=== PATIENT | female | born 1975 | race Two or more races ===

== ENCOUNTER 2016-09-05 21:01 | Emergency (ER) | payer MEDICAID ==
[~2016-09-05] VITALS: Ht 162.6 cm; Wt 90.7 kg
[2016-09-05 21:23] VITALS: BP 156/91
[2016-09-06] MEDS ORDERED: CYCLOBENZAPRINE HCL 10 MG TAB PO ONE
== END 2016-09-06 00:21 | disposition home or self-care (01) ==
LOC: ER 21:14
DX: S86.911A Strain of unspecified muscle(s) and tendon(s) at lower leg level, right leg, initial encounter (principal); M54.16 Radiculopathy, lumbar region; F17.210 Nicotine dependence, cigarettes, uncomplicated; F41.9 Anxiety disorder, unspecified; F32.9 Major depressive disorder, single episode, unspecified; E11.9 Type 2 diabetes mellitus without complications; Z86.73 Personal history of transient ischemic attack (TIA), and cerebral infarction without residual deficits; Z88.8 Allergy status to other drugs, medicaments and biological substances; X58.XXXA Exposure to other specified factors, initial encounter; Y93.89 Activity, other specified; Y92.89 Other specified places as the place of occurrence of the external cause; Y99.8 Other external cause status
CPT/HCPCS: 73560

== ENCOUNTER 2017-02-06 14:57 | Emergency (ER) | payer MEDICAID ==
[~2017-02-06] VITALS: Ht 157.5 cm; Wt 90.7 kg
[2017-02-06 15:57] VITALS: BP 144/87
[2017-02-06] MEDS ORDERED: KETOROLAC TROMETH 60MG/2ML VIAL IM ONE (17:00)
== END 2017-02-06 17:44 | disposition home or self-care (01) ==
LOC: ER 15:21
DX: M54.41 Lumbago with sciatica, right side (principal); E11.9 Type 2 diabetes mellitus without complications; F17.210 Nicotine dependence, cigarettes, uncomplicated; Z88.1 Allergy status to other antibiotic agents; Z90.49 Acquired absence of other specified parts of digestive tract
CPT/HCPCS: 96372; 99283; J1885

== ENCOUNTER 2017-05-20 23:18 | Observation (INO) | payer MEDICAID ==
[~2017-05-20] VITALS: Ht 157.5 cm; Wt 90.7 kg
[2017-05-21 00:20] LABS: Basophils # (auto) 0 uL; Basophils % (auto) 0.8 % (0.0-2.0); Eosinophils # (auto) 0.2 uL; Eosinophils % (auto) 3.4 % (0.0-7.0); Hematocrit 38.9 % (36.0-46.0); Hemoglobin 13.2 g/dL (12.2-16.2); Lymphocytes # (auto) 1.9 uL; Lymphocytes % (auto) 33.2 % (10.0-50.0); Mean Corpuscular Hemoglobin 31.6 pg (28.0-32.0); Mean Corpuscular Volume 92.8 fL (80.0-100.0); Monocytes # (auto) 0.6 uL; Monocytes % (auto) 11.4 % (0.0-12.0); Neutrophils # (auto) 2.9 uL; Neutrophils % (auto) 51.2 % (37.0-80.0); Nucleated Red Blood Cells % 0.1 %; Platelet Count (auto) 214 10^3/uL (140-450); Red Blood Cells 4.19 10^6/uL (4.0-5.20); Red Cell Distribution Width 13.8 % (11.8-14.3); White Blood Cell 5.6 10^3/uL (4.4-10.8)
[2017-05-21 00:32] LABS: Acetaminophen < 2.0 ug/mL (10-30); Salicylate 2.2 mg/dL (2.8-20.0)
[2017-05-21 00:36] LABS: Alanine Aminotransferase 117 U/L (13-56); Albumin 3.6 g/dL (3.4-5.0); Alkaline Phosphatase 177 U/L (45-117); Anion Gap 7 (5-15); Aspartate Aminotransferase 118 U/L (15-37); Bilirubin, Total 0.7 mg/dL (0.2-1.0); Blood Alcohol < 3.0 mg/dL (0-5); Blood Urea Nitrogen 7 mg/dL (7-18); Carbon Dioxide 28 mmol/L (21-32); Chloride 101 mmol/L (98-107); GFR African American 104 mL/min; GFR Non-African American 86 mL/min; Glucose 96 mg/dL (74-106); Potassium 4.1 mmol/L (3.5-5.1); Sodium 136 mmol/L (136-145); Total Protein 8.2 g/dL (6.4-8.2)
[2017-05-21 02:16] LABS: Urine WBC None Seen /hpf (0 - 5)
[2017-05-21 02:32] LABS: Urine Pregnacy Test Negative (Negative)
[2017-05-21 02:33] LABS: Urine Bacteria NONE SEEN /hpf (None Seen); Urine Blood 2+ /uL (Negative); Urine Specific Gravity 1.002 (1.001-1.035)
[2017-05-21 02:48] LABS: Alcohol, Urine < 3.0 mg/dL (0-5); Amphetamine Screen, Urine NEGATIVE (NEGATIVE); Barbiturate Scree,Urine NEGATIVE (NEGATIVE); Benzodiazephine Screen, Urine NEGATIVE (NEGATIVE); Cannabinoid Screen, Urine NEGATIVE (NEGATIVE); Cocaine Screen, Urine NEGATIVE (NEGATIVE); Opiate Scree,Urine NEGATIVE (NEGATIVE); Phencyclidine Screen, Urine NEGATIVE (NEGATIVE)
[2017-05-21] MEDS ORDERED: ALBUTEROL SULF 2.5 MG/0.5ML(0.5%) NEB SOLN NEB ONE (07:15)
[2017-05-21] MEDS ORDERED: IPRATROPIUM BROM 0.5 MG/2.5ML INH SOL NEB ONE (07:15)
[2017-05-21] MEDS ORDERED: ACETAMINOPHEN 325 MG TAB PO PRN (08:00)
[2017-05-21] MEDS: LEVETIRACETAM 500 MG TAB PO SCH (10:13)
[2017-05-21] MEDS: amLODIPine BESYLATE 5 MG TAB PO SCH (10:13)
[2017-05-21] MEDS: lamoTRIgine 100 MG TAB PO SCH (10:13)
[2017-05-21] MEDS: PARoxetine 20 MG TAB PO SCH (10:13)
[2017-05-21] MEDS: GABAPENTIN 300 MG CAP PO SCH (16:56)
[2017-05-22] MEDS: lamoTRIgine 100 MG TAB PO SCH ×2 (06:54→11:00)
[2017-05-22] MEDS: traZODone HCL 50 MG TAB PO SCH (06:54)
[2017-05-22] MEDS: GABAPENTIN 300 MG CAP PO SCH ×2 (06:55→11:00)
[2017-05-22] MEDS ORDERED: NICOTINE 14 MG/24HR TOPICAL PATCH TD ONE (08:45)
[2017-05-22] MEDS: LEVETIRACETAM 500 MG TAB PO SCH (11:00)
[2017-05-22] MEDS: amLODIPine BESYLATE 5 MG TAB PO SCH (11:00)
[2017-05-22] MEDS: PARoxetine 20 MG TAB PO SCH (11:00)
[2017-05-22] MEDS ORDERED: LORazepam 0.5 MG TAB ONE (16:45)
[2017-05-23] MEDS: GABAPENTIN 300 MG CAP PO SCH ×3 (00:07→14:00)
[2017-05-23] MEDS: traZODone HCL 50 MG TAB PO SCH ×2 (00:23→22:43)
[2017-05-23] MEDS: lamoTRIgine 100 MG TAB PO SCH (00:23)
[2017-05-23] MEDS ORDERED: LORazepam 0.5 MG TAB PO ONE (09:30)
[2017-05-23 11:34] VITALS: BP 125/85
== END 2017-05-24 08:21 | disposition home or self-care (01) | DRG 751 ==
LOC: EDBD 23:18 → ER 23:22 → OVERFLOW 23:23 → ER 05-24 08:21
PROVIDERS: ADMIT Emergency Medicine; ATTEND Emergency Medicine
DX: F23 Brief psychotic disorder (principal); F33.1 Major depressive disorder, recurrent, moderate; F41.9 Anxiety disorder, unspecified; E11.9 Type 2 diabetes mellitus without complications; F17.210 Nicotine dependence, cigarettes, uncomplicated; Z59.0 Homelessness; F31.9 Bipolar disorder, unspecified; Z90.49 Acquired absence of other specified parts of digestive tract
CPT/HCPCS: 36415; 80053; 80307; 80320; 80329; 81001; 81025; 85025; 94640; 99285; G0378

== ENCOUNTER 2018-04-29 19:26 | Emergency (ER) | payer MEDICAID ==
[~2018-04-29] VITALS: Ht 167.6 cm; Wt 99.8 kg
[2018-04-29 19:47] VITALS: BP 196/119
[2018-04-29] MEDS ORDERED: HALOPERIDOL LACTATE 5 MG/ML INJ VIAL IM ONE (21:00)
[2018-04-29 21:14] LABS: Basophils # (auto) 0.1 uL; Basophils % (auto) 0.8 % (0.0-2.0); Eosinophils # (auto) 0.1 uL; Eosinophils % (auto) 2.2 % (0.0-7.0); Hemoglobin 12.9 g/dL (12.2-16.2); Lymphocytes # (auto) 2.1 uL; Lymphocytes % (auto) 32.6 % (10.0-50.0); Mean Corpuscular Hemoglobin 31.7 pg (28.0-32.0); Mean Corpuscular Hgb Conc. 34.7 g/dL (32.0-36.0); Mean Corpuscular Volume 91.3 fL (80.0-100.0); Monocytes # (auto) 0.6 uL; Monocytes % (auto) 8.9 % (0.0-12.0); Neutrophils # (auto) 3.6 uL; Neutrophils % (auto) 55.5 % (37.0-80.0); Nucleated Red Blood Cells % 0.2 %; Platelet Count (auto) 202 10^3/uL (140-450); Red Blood Cells 4.05 10^6/uL (4.0-5.20); Red Cell Distribution Width 12.5 % (11.8-14.3); White Blood Cell 6.5 10^3/uL (4.4-10.8)
[2018-04-29 21:24] LABS: Alcohol, Urine < 3.0 mg/dL (0-5); Amphetamine Screen, Urine NEGATIVE (NEGATIVE); Barbiturate Scree,Urine NEGATIVE (NEGATIVE); Benzodiazephine Screen, Urine NEGATIVE (NEGATIVE); Cannabinoid Screen, Urine NEGATIVE (NEGATIVE); Cocaine Screen, Urine NEGATIVE (NEGATIVE); Opiate Scree,Urine NEGATIVE (NEGATIVE); Phencyclidine Screen, Urine NEGATIVE (NEGATIVE)
[2018-04-29 21:29] LABS: Alanine Aminotransferase 76 U/L (13-56); Albumin 3.8 g/dL (3.4-5.0); Anion Gap 14 (5-15); Aspartate Aminotransferase 73 U/L (15-37); BUN/Creatinine Ratio 5.2; Blood Alcohol < 3.0 mg/dL (0-5); Blood Urea Nitrogen 3 mg/dL (7-18); Calcium 8.5 mg/dL (8.5-10.1); Carbon Dioxide 21 mmol/L (21-32); Chloride 91 mmol/L (98-107); GFR African American 146 mL/min; GFR Non-African American 121 mL/min; Glucose 107 mg/dL (74-106); Magnesium 1.7 mg/dL (1.6-2.6); Potassium 3.2 mmol/L (3.5-5.1); Sodium 126 mmol/L (136-145)
[2018-04-29 21:32] LABS: Alkaline Phosphatase 182 U/L (45-117); Bilirubin, Total 0.8 mg/dL (0.2-1.0)
[2018-04-30] MEDS ORDERED: diphenhdrAMINE HCL 50 MG/1 ML VL ONE (11:45)
[2018-04-30] MEDS ORDERED: HALOPERIDOL LACTATE 5 MG/ML INJ VIAL ONE (11:45)
[2018-04-30] MEDS ORDERED: LORazepam 2MG/ML-1ML VIAL ONE (11:45)
== END 2018-04-30 05:54 | disposition home or self-care (01) ==
LOC: EDBD 19:26 → ER 19:26
DX: F20.9 Schizophrenia, unspecified (principal); F41.9 Anxiety disorder, unspecified; F32.9 Major depressive disorder, single episode, unspecified; E11.9 Type 2 diabetes mellitus without complications; I10 Essential (primary) hypertension; F17.210 Nicotine dependence, cigarettes, uncomplicated; Z86.73 Personal history of transient ischemic attack (TIA), and cerebral infarction without residual deficits; Z90.49 Acquired absence of other specified parts of digestive tract
CPT/HCPCS: 36415; 71045; 80053; 80307; 80320; 83735; 85025; 93005; 96372; 99284; J1630

== ENCOUNTER 2018-04-30 11:44 | Emergency (ER) | payer MEDICAID ==
[~2018-04-30] VITALS: Ht 162.6 cm; Wt 95.3 kg
[2018-04-30] MEDS ORDERED: LORazepam 2MG/ML-1ML VIAL IV ONE (12:00)
[2018-04-30] MEDS ORDERED: diphenhdrAMINE HCL 50 MG/1 ML VL IM ONE (12:00)
[2018-04-30] MEDS ORDERED: HALOPERIDOL LACTATE 5 MG/ML INJ VIAL IM ONE (12:00)
[2018-04-30 13:47] LABS: Basophils # (auto) 0 uL; Basophils % (auto) 0.4 % (0.0-2.0); Eosinophils # (auto) 0.1 uL; Eosinophils % (auto) 0.8 % (0.0-7.0); Hematocrit 40.4 % (36.0-46.0); Hemoglobin 13.5 g/dL (12.2-16.2); Lymphocytes # (auto) 1.1 uL; Mean Corpuscular Hemoglobin 31.1 pg (28.0-32.0); Mean Corpuscular Hgb Conc. 33.5 g/dL (32.0-36.0); Mean Corpuscular Volume 92.8 fL (80.0-100.0); Monocytes # (auto) 0.5 uL; Monocytes % (auto) 7.8 % (0.0-12.0); Nucleated Red Blood Cells % 0.1 %; Platelet Count (auto) 205 10^3/uL (140-450); Red Blood Cells 4.35 10^6/uL (4.0-5.20); Red Cell Distribution Width 12.6 % (11.8-14.3); White Blood Cell 6.7 10^3/uL (4.4-10.8)
[2018-04-30 14:01] LABS: Urine Pregnacy Test Negative (Negative)
[2018-04-30 14:07] LABS: Calcium 8.5 mg/dL (8.5-10.1); Potassium 3.6 mmol/L (3.5-5.1)
[2018-04-30 14:08] LABS: Salicylate 2.2 mg/dL (2.8-20.0)
[2018-04-30 14:09] LABS: Alcohol, Urine < 3.0 mg/dL (0-5); Amphetamine Screen, Urine NEGATIVE (NEGATIVE); Barbiturate Scree,Urine NEGATIVE (NEGATIVE); Benzodiazephine Screen, Urine NEGATIVE (NEGATIVE); Cannabinoid Screen, Urine NEGATIVE (NEGATIVE); Cocaine Screen, Urine NEGATIVE (NEGATIVE); Opiate Scree,Urine NEGATIVE (NEGATIVE); Phencyclidine Screen, Urine NEGATIVE (NEGATIVE)
[2018-04-30 14:10] LABS: BUN/Creatinine Ratio 8.2; Bilirubin, Total 0.7 mg/dL (0.2-1.0); Total Protein 8.3 g/dL (6.4-8.2)
[2018-04-30 14:12] LABS: Acetaminophen < 2.0 ug/mL (10-30)
[2018-04-30] MEDS ORDERED: cloNIDine HCL 0.1 MG TAB PO ONE (17:00)
[2018-05-01] MEDS ORDERED: NICOTINE 7MG/24HR TOPICAL PATCH TD ONE (09:45)
[2018-05-01] MEDS: HALOPERIDOL LACTATE 5 MG/ML INJ VIAL IM PRN (16:38)
[2018-05-02] MEDS ORDERED: LORazepam 2MG/ML-1ML VIAL ONE (01:53)
[2018-05-02] MEDS ORDERED: LORazepam 2MG/ML-1ML VIAL IM ONE (02:00)
[2018-05-02] MEDS ORDERED: HALOPERIDOL LACTATE 5 MG/ML INJ VIAL ONE (14:23)
[2018-05-02] MEDS: HALOPERIDOL LACTATE 5 MG/ML INJ VIAL IM PRN (14:30)
[2018-05-02 19:28] VITALS: BP 171/104
== END 2018-05-01 12:49 | disposition short-term general hospital (02) ==
LOC: EDBD 11:44 → ER 11:44
DX: R45.851 Suicidal ideations (principal); F32.9 Major depressive disorder, single episode, unspecified; F41.9 Anxiety disorder, unspecified; E11.9 Type 2 diabetes mellitus without complications; I10 Essential (primary) hypertension; F20.9 Schizophrenia, unspecified; F17.210 Nicotine dependence, cigarettes, uncomplicated; Z90.49 Acquired absence of other specified parts of digestive tract
CPT/HCPCS: 36415; 71045; 80053; 80307; 80320; 80329; 81025; 85025; 96372; 96374